=== PATIENT | male | born 1955 | race Two or more races ===

== ENCOUNTER 2018-06-20 11:22 | Outpatient (CLI) | payer OTHER ==
[~2018-06-20 11:22] MED LIST: ALEVE220 M1 PO; ALLEGRA ALLERGY60 MG PO; CEFADROXIL500 MG PO; CLONAZEPAM1 MG; CLONAZEPAM2 MG; CLONAZEPAM2 MG PO; DICLOFENAC SODI50 MG PO; KETO10TA2 PO; LOTRISONE CREAM45 GM TP; PERCOCET 5/3251 TAB PO; PREDNISONE10 MG PO; ULTRACET PO
== END 2018-06-20 11:26 | disposition home or self-care (01) ==
LOC: RAD 501 11:22
DX: I11.9 Hypertensive heart disease without heart failure (principal)

== ENCOUNTER 2023-04-06 09:37 | Outpatient (CLI) | payer OTHER | END 2023-04-06 09:40 | disposition home or self-care (01) | LOC: NUCLEAR 09:37 | PROVIDERS: ATTEND Internal Medicine | DX: I35.0 Nonrheumatic aortic (valve) stenosis (principal) ==